=== PATIENT | female | born 1985 | race Caucasian/White ===

== ENCOUNTER 2024-09-27 13:12 | Emergency (ER) | payer MEDICAID ==
[~2024-09-27] VITALS: Ht 154.9 cm; Wt 78.0 kg
[2024-09-27 13:25] VITALS: O2SAT 99
[2024-09-27] MEDS: TETANUS, DIPHTHERIA, PERTUSSIS VAC/PF 0.5ML (>10YR OLD) IM ONE (15:47)
[2024-09-27] MEDS: KETOROLAC 30MG/ML VIAL IM ONE (15:48)
[2024-09-27] MEDS: LIDOCAINE HCL 1% 20ML VIAL INL ONE (15:49)
[2024-09-27] MEDS ORDERED: IBUP-2030 MT (17:46)
[2024-09-27] MEDS ORDERED: BO1 TP (17:46)
[2024-09-27 17:51] VITALS: BP 115/55; PULSE 57; RESP 16; TEMP 37.1; O2SAT 99
== END 2024-09-27 18:02 | disposition home or self-care (01) ==
LOC: ER 13:12
DX: S61.012A Laceration without foreign body of left thumb without damage to nail, initial encounter (principal); Z98.890 Other specified postprocedural states; Z79.899 Other long term (current) drug therapy; W26.0XXA Contact with knife, initial encounter; Y93.89 Activity, other specified; Y92.89 Other specified places as the place of occurrence of the external cause; Y99.8 Other external cause status
CPT/HCPCS: 99284; 81025; 90715; 12002; 90471; 96372; J1885; J2003

== ENCOUNTER 2024-10-07 14:57 | Emergency (ER) | payer MEDICAID ==
[~2024-10-07] VITALS: Ht 144.8 cm; Wt 74.0 kg
[~2024-10-07 14:57] MED LIST: BO1 TP; IBUP-2030 MT
[2024-10-07 15:10] VITALS: O2SAT 99
[2024-10-07] MEDS ORDERED: BO1 TP (15:52)
[2024-10-07 16:26] VITALS: BP 106/72; PULSE 72; RESP 14; TEMP 37.1; O2SAT 100
== END 2024-10-07 21:14 | disposition home or self-care (01) ==
LOC: ER 14:57
DX: S61.019D Laceration without foreign body of unspecified thumb without damage to nail, subsequent encounter (principal); Z48.02 Encounter for removal of sutures; Z98.890 Other specified postprocedural states; X58.XXXD Exposure to other specified factors, subsequent encounter
CPT/HCPCS: 99282; Z7610 ×2

== ENCOUNTER 2025-01-24 08:44 | Emergency (ER) | payer MEDICAID ==
[~2025-01-24] VITALS: Ht 157.5 cm; Wt 73.0 kg
[2025-01-24 09:04] VITALS: TEMP 37.3; O2SAT 98
[2025-01-24 09:30] VITALS: TEMP 99.2
[2025-01-24] MEDS: DEXAMETHASONE 10 MG/ML VIAL IV ONE (09:30)
[2025-01-24] MEDS: ACETAMINOPHEN 500MG TABLET PO ONE (09:30)
[2025-01-24] MEDS: DEXAMETHASONE 10 MG/ML VIAL ONE (09:31)
[2025-01-24] MEDS: ACETAMINOPHEN 500MG TABLET ONE (09:31)
[2025-01-24] MEDS ORDERED: AMOX500T2 MT (11:41)
[2025-01-24 12:01] VITALS: BP 98/63; PULSE 79; RESP 14; O2SAT 100
== END 2025-01-24 12:03 | disposition home or self-care (01) ==
LOC: ER 08:44
DX: J02.0 Streptococcal pharyngitis (principal); R50.9 Fever, unspecified; Z20.822 Contact with and (suspected) exposure to COVID-19
CPT/HCPCS: 99283; 96374; 87426; 87430; J1100